=== PATIENT | male | born 1995 | race Caucasian/White ===

== ENCOUNTER 2021-07-09 20:29 | Emergency (ER) | payer OTHER ==
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
[2021-07-09] MEDS ORDERED: Ketorolac 30 MG/ML SDV IM ONE (23:03)
--- NOTE | 2021-07-09 23:31 | CR ---
PROCEDURE INFORMATION: Exam: XR Left Knee Exam date and time: 07/09/2021 10:14 PM Age: 25 years old Clinical indication: Other: Pain; Additional info: Anterior knee pain TECHNIQUE: Imaging protocol: XR Left knee. Views: 3 views. COMPARISON: No relevant prior studies available. FINDINGS: Bones/joints: A small linear calcification is present on the lateral view inferior to the patella and likely represents a small avulsion fracture though the exact origin is indeterminate. Soft tissues: Mild loss of articular cartilage in the medial compartment of the left knee is noted. Other findings: A minimal subpulmonic effusion is thought to present. IMPRESSION: Mild degenerative changes with probable remote avulsion fracture with residual calcification within the knee joint.
== END 2021-07-09 23:32 | disposition home or self-care (01) ==
LOC: DL.ED 20:29
DX: S86.912A Strain of unspecified muscle(s) and tendon(s) at lower leg level, left leg, initial encounter (principal); X50.0XXA Overexertion from strenuous movement or load, initial encounter
CPT/HCPCS: 73562-LT; 96372; 99283-25; J1885